=== PATIENT | male | born 1935 | race Caucasian/White ===

== ENCOUNTER → 2019-03-01 14:20 | Outpatient (ROUT) | payer MEDICARE, OTHER, SELFPAY ==
[2019-03-01 15:03] LABS: Aspartate Aminotransferase 27 IU/L (17-59); BUN Creatinine Ratio 23.3 (6-22); Blood Urea Nitrogen 21 mg/dL (9-20); Calcium 9.2 mg/dL (8.4-10.2); Carbon Dioxide 28 mmol/L (22-32); Chloride 103 mmol/L (98-107); Cholesterol 149 mg/dL (140-199); Estimated Glomerular Filt Rate > 60.0 mL/min (>60); Glucose 104 mg/dL (80-110); HDL Cholesterol 35 mg/dL (40-60); HEMOLYSIS 16 (0-50); LDL Cholesterol Calculated 47 mg/dL (<100); Sodium 141 mmol/L (137-145); Triglycerides 334 mg/dL (35-150)
[2019-03-01 15:32] LABS: Prostate Specific Antigen < 0.064 ng/mL (0.10-4.00)
== END ==
PROVIDERS: Family Provider Internal Medicine; PCP Internal Medicine; Visit Provider Internal Medicine
DX: I10 Essential (primary) hypertension (principal); E78.2 Mixed hyperlipidemia; C61 Malignant neoplasm of prostate
CPT/HCPCS: 80048; 80061; 84153; 84450

== ENCOUNTER 2019-11-05 16:58 | Emergency (ER) | payer MEDICARE, OTHER, SELFPAY ==
[2019-11-05 17:00] VITALS: PULSE 70; RESP 20; TEMP 37.3; O2SAT 97
--- NOTE | 2019-11-05 17:06 | DI.RAD.S_ITS ---
PROCEDURE: XR CHEST 1V INDICATIONS: chest pain TECHNIQUE: One view of the chest was acquired. COMPARISON: None. FINDINGS: Surgical changes and devices: None. Lungs and pleura: An incomplete inspiratory result is noted, causing a crowded appearance to the lung markings. No focal infiltrates are seen. No pneumothorax or significant pleural effusions are seen. Mediastinum: Prominence of the superior mediastinum can be seen. The cardiac contours are within normal limits. The aorta demonstrates calcification and tortuosity. Bones and chest wall: No suspicious bony lesions. Age-appropriate bony degenerative changes are seen. Overlying soft tissues appear unremarkable. IMPRESSION: There is prominence of the superior mediastinum. Statistically, this is most likely related to prominent vessels. However, please consider a dedicated chest CT with IV contrast for further evaluation. Dictated by: Gabriel Campo M.D. on 11/05/2019 at 17:06 Approved by: Gabriel Campo M.D. on 11/05/2019 at 17:07
[2019-11-05 17:08] VITALS: BP 138/71
[2019-11-05 17:30] LABS: INR 1.2 (0.9-1.3); Prothrombin Time 13.3 SECONDS (10.1-12.7)
[2019-11-05 17:33] LABS: PTT Partial Thromboplastin Tim 32 SECONDS (26.4-36.2)
[2019-11-05 17:35] LABS: Add Manual Diff / Slide Review NO; Alanine Aminotransferase 22 IU/L (<50); Albumin 4.5 g/dL (3.5-5.0); Albumin Globulin Ratio 1.6 (1.0-2.8); Alkaline Phosphatase 67 U/L (38-126); Aspartate Aminotransferase 29 IU/L (17-59); BUN Creatinine Ratio 19.1 (6-22); Basophils Absolute Auto 0 /uL (0-100); Basophils Percent Auto 0.6 % (0-2); Bilirubin Total 0.5 mg/dL (0.2-1.3); Blood Urea Nitrogen 17 mg/dL (9-20); Calcium 9.1 mg/dL (8.4-10.2); Carbon Dioxide 28 mmol/L (22-32); Chloride 102 mmol/L (98-107); Creatine Kinase 66 U/L (55-170); Eosinophils Absolute Auto 0 /uL (0-450); Eosinophils Percent Auto 0.1 % (2-4); Estimated Glomerular Filt Rate > 60.0 mL/min (>60); Globulin 2.8 g/dL (1.7-4.1); Glucose 137 mg/dL (80-110); HEMOLYSIS 27 (0-50); Hematocrit 48.5 % (41-53); Hemoglobin 16.8 g/dL (13.5-17.5); Lipase 205 U/L (23-300); Lymphocytes Absolute Auto 900 /uL (1100-4500); Lymphocytes Percent Auto 12.2 % (25-40); Mean Corpuscular HGB Conc 34.6 % (30-36); Mean Corpuscular Hemoglobin 30.5 PG (26-34); Mean Corpuscular Volume 88.2 fL (80-100); Monocytes Absolute Auto 1100 /uL (0-900); Monocytes Percent Auto 15.2 % (3-14); Neutrophils Absolute Auto 5400 /uL (1500-7000); Neutrophils Percent Auto 71.9 % (50-75); Platelet Count 227 X10^3/uL (150-400); Potassium 3.5 mmol/L (3.4-5.1); Red Cell Distribution Width 13.5 % (11.6-14.8); Sodium 137 mmol/L (137-145); Total Protein 7.3 g/dL (6.3-8.2); White Blood Cell Count 7.5 X10^3/uL (4.5-11.0)
[2019-11-05 17:44] LABS: NT-proBNP (BNP-Adult 18+) 280 pg/mL (<450)
[2019-11-05 17:46] LABS: Troponin I < 0.012 ng/mL (0.01-0.034)
[2019-11-05] MEDS: KETOROLAC 60 MG/2 ML VIAL 15 MG IV (18:21)
[2019-11-05] MEDS: SODIUM CHLORIDE 0.9% 500 ML 1000 ML IV (18:21)
[2019-11-05 18:30] VITALS: BP 154/70; PULSE 59; RESP 29; O2SAT 94
[2019-11-05 18:46] LABS: D Dimer 258 ng/mL (<230)
[2019-11-05 19:00] VITALS: BP 142/66; PULSE 59; RESP 21; O2SAT 94
--- NOTE | 2019-11-06 00:38 | ED_ITS ---
HPI - Extremity Problem <SHANAE Huertas - Last Filed: 11/06/19 01:10> General Chief complaint: Extremity Problem,Nontraumatic Stated complaint: fatigue,leg aches bilat Time Seen by Provider: 11/05/19 17:35 Source: patient Mode of arrival: Ambulatory Limitations: no limitations History of Present Illness HPI Narrative: This is a 84-year-old male, nonsmoker, who has history of prosta te cancer with seed implantations, hypertension and hyperlipidemia who presents to ED with significant other with chief complain of vague symptoms, lack of energy for 2 days. Patient denies fever, chills, nausea or vomiting or diarrhea. Patient denies history of thyroid disease. Denies recent weight changes, blood in his stool or urine, recent URI symptoms, abdominal pain, chest pain, breathing difficulty, headache, vision change, urinary symptoms, unusual rashes. Patient reports his only complaint is some aches in bilateral thighs. Patient denies recent fall or trauma. He denies recent foreign travel. Spouse noticed somewhat decreased in appetite. Related Data Home Medications Medication Instructions Recorded Confirmed amlodipine [Norvasc] 10 mg PO QDAY #0 12/08/10 07/26/19 aspirin 81 mg PO QDAY #0 12/08/10 07/26/19 furosemide 40 mg PO BID #0 12/08/10 07/26/19 losartan 100 mg PO QDAY #0 12/08/10 07/26/19 metoprolol tartrate 12.5 mg PO BID #0 12/08/10 07/26/19 simvastatin 40 mg PO QDAY #0 12/08/10 07/26/19 Respironics DreamStation CPAP #1 [id number] 07/13/18 07/26/19 Allergies Allergy/AdvReac Type Severity Reaction Status Date / Time No Known Drug Allergies Allergy Unverified 01/11/19 10:40 Review of Systems <SHANAE Huertas - Last Filed: 11/06/19 01:10> Review of Systems Narrative: General: See HPI HEENT: Denies sinus pain, ear pain, sore throat, difficulty swallowing, dizziness. Respiratory: Denies dyspnea, cough, wheezing, hemoptysis, sputum. Cardiovascular: Denies chest pain, palpitations, orthopnea, edema. Gastrointestinal: Denies nausea, vomiting, abdominal pain, diarrhea, constipation, melena. : Denies dysuria, frequency, incontinence, hematuria, urinary retention. Musculoskeletal: HPI Skin: Denies rash, skin lesions, or other. Neurologic: Denies weakness, headache, numbness, change in speech, confusion, seizures, incoordination. Psychiatric: No concerning psychosocial issues. 12-point review of systems is negative except for those stated above. 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 Head: Normal cephalic, atraumatic. No scalp or temporal tenderness, palpable mass or rash. EYES: Pupils are equal, round, and reactive to light and accommodation. Extraocular muscles are intact bilaterally. There is no subconjunctival hemorrhage, exudate and sclera non-icteric. ENT: Hearing grossly intact. Nose without bleeding, purulent discharge or deviation. Facial sinuses nontender to palpate. Mucous membrane moist, no mucosal lesion. Throat without erythema, tonsillar hypertrophy or exudate. Uvula in midline, airway patent. Neck: Trachea in midline. No JVD, non-tender without lymphadenopathy. No masses or thyroid megaly. Supple, non-tender and no meningeal signs. CARDIAC: Normal regular rate and rhythm without murmurs, gallops, or rubs. No chest wall tenderness. No peripheral edema, cyanosis or pallor. Capillary refill is less than 2 seconds. RESPIRATORY: Lungs are clear to auscultate bilaterally. No cough, wheezes, rales, or rhonchi. No stridor, respiratory distress, increase work of br eathing, or accessary muscle used. ABD: Abdomen soft, nontender and non-distended. No guarding or rebound tenderness to palpate. Bowel sounds are normal in all 4 quadrants. There is no palpable masses or organomegaly. EXT: Full painless ROM of all extremities with no loss of sensation, strength, effusion or edema. Bilateral lower extremity strength equal bilateral SKIN: Warm, dry, normal color for patient. No erythema, lesions or rash over visible areas. BACK: Nontender without deformity or crepitance. No flank tenderness. NEUROLOGICAL: Alert and oriented to place, time and person. Sensation and motor function intact bilaterally. No facial droops, dysphasia. PSYCHIATRIC: Good judgement and reason, without hallucinations, abnormal affect or abnormal behaviors during the examination. Patient is not suicidal. Initial Vital Signs Initial Vital Signs: Vital Signs Temperature 99.1 F 11/05/19 17:00 Pulse Rate 70 11/05/19 17:00 Respiratory Rate 20 11/05/19 17:00 Pulse Oximetry 97 11/05/19 17:00 <Richard Velazco MD - Last Filed: 11/10/19 21:19> Initial Vital Signs Initial Vital Signs: Vital Signs Temperature 99.1 F 11/05/19 17:00 Pulse Rate 70 11/05/19 17:00 Respiratory Rate 20 11/05/19 17:00 Pulse Oximetry 97 11/05/19 17:00 Course <SHANAE Huertas - Last Filed: 11/06/19 01:10> Orders Ordered: Discontinued Medications Sodium Chloride (Normal Saline 0.9%) 500 mls @ 1,000 mls/hr IV BOLUS ONE Stop: 11/05/19 18:48 Last Admin: 11/05/19 18:21 Dose: 1,000 mls/hr Documented by: ALF Ketorolac Tromethamine (Toradol) 15 mg IV NOW ONE Stop: 11/05/19 18:17 Last Admin: 11/05/19 18:21 Dose: 15 mg Documented by: ALF Vital Signs Vital signs: Vital Signs - 8 hr 11/05/19 17:00 11/05/19 17:08 11/05/19 18:30 Temperature 99.1 F Pulse Rate 70 59 L Respiratory Rate 20 29 H Blood Pressure [Left Arm] 138/71 154/70 H Pulse Oximetry 97 94 11/05/19 19:00 Temperature Pulse Rate 59 L Respiratory Rate 21 Blood Pressure [Left Arm] 142/66 H Pulse Oximetry 94 <Richard Velazco MD - Last Filed: 11/10/19 21:19> Orders Ordered: Discontinued Medications Sodium Chloride (Normal Saline 0.9%) 500 mls @ 1,000 mls/hr IV BOLUS ONE Stop: 11/05/19 18:48 Last Admin: 11/05/19 18:21 Dose: 1,000 mls/hr Documented by: ALF Ketorolac Tromethamine (Toradol) 15 mg IV NOW ONE Stop: 11/05/19 18:17 Last Admin: 11/05/19 18:21 Dose: 15 mg Documented by: ALF Vital Signs Vital signs: Vital Signs - 8 hr 11/05/19 17:00 11/05/19 17:08 11/05/19 18:30 Temperature 99.1 F Pulse Rate 70 59 L Respiratory Rate 20 29 H Blood Pressure [Left Arm] 138/71 154/70 H Pulse Oximetry 97 94 11/05/19 19:00 Temperature Pulse Rate 59 L Respiratory Rate 21 Blood Pressure [Left Arm] 142/66 H Pulse Oximetry 94 MDM - Extremity (Nontraumatic) <SHANAE Huertas - Last Filed: 11/06/19 01:10> Differential Diagnosis Differential diagnosis: Likely other (Pneumonia, anemia, LA, infection, DVT, muscular skeletal discomfort) Medical Records Attestation: I reviewed the patient's medical records. Lab Data Attestation: I reviewed the patient's lab results. Result diagrams: 11/05/19 17:15 11/05/19 17:15 Labs: Lab Results 11/05/19 11/05/19 11/05/19 Range/Units 17:15 17:15 17:15 WBC 7.5 (4.5-11.0) X10^3/uL RBC 5.50 (4.5-5.9) X10^6/uL Hgb 16.8 (13.5-17.5) g/dL Hct 48.5 (41-53) % MCV 88.2 (80-100) fL MCH 30.5 (26-34) PG MCHC 34.6 (30-36) % RDW 13.5 (11.6-14.8) % Plt Count 227 (150-400) X10^3/uL Neut % (Auto) 71.9 (50-75) % Lymph % (Auto) 12.2 L (25-40) % [place] % (Auto) 15.2 H (3-14) % Eos % (Auto) 0.1 L (2-4) % Baso % (Auto) 0.6 (0-2) % Neut # (Auto) 5400 (8019-8386) /uL Lymph # (Auto) 900 L (4401-0173) /uL [place] # (Auto) 1100 H (0-900) /uL Eos # (Auto) 0 (0-450) /uL Baso # (Auto) 0 (0-100) /uL PT 13.3 H (10.1-12.7) SECONDS INR 1.2 (0.9-1.3) APTT 32 (26.4-36.2) SECONDS D-Dimer (<230) ng/mL Sodium 137 (137-145) mmol/L Potassium 3.5 (3.4-5.1) mmol/L Chloride 102 (98-107) mmol/L Carbon Dioxide 28 (22-32) mmol/L BUN 17 (9-20) mg/dL Creatinine 0.89 (0.66-1.25) mg/dL Estimated GFR > 60.0 (>60) mL/min BUN/Creatinine Ratio 19.1 (6-22) Glucose 137 H (80-110) mg/dL Calcium 9.1 (8.4-10.2) mg/dL Magnesium 2.0 (1.6-2.3) mg/dL Total Bilirubin 0.5 (0.2-1.3) mg/dL AST 29 (17-59) IU/L ALT 22 (<50) IU/L Alkaline Phosphatase 67 (38-126) U/L Total Creatine Kinase 66 (55-170) U/L CK-MB (CK-2) TNP CK-MB (CK-2) Rel Index TNP Troponin I < 0.012 (0.01-0.034) ng/mL NT-Pro-B Natriuret Pep (<450) pg/mL Total Protein 7.3 (6.3-8.2) g/dL Albumin 4.5 (3.5-5.0) g/dL Globulin 2.8 (1.7-4.1) g/dL Albumin/Globulin Ratio 1.6 (1.0-2.8) Lipase 205 (23-300) U/L 11/05/19 11/05/19 Range/Units 17:15 17:15 WBC (4.5-11.0) X10^3/uL RBC (4.5-5.9) X10^6/uL Hgb (13.5-17.5) g/dL Hct (41-53) % MCV (80-100) fL MCH (26-34) PG MCHC (30-36) % RDW (11.6-14.8) % Plt Count (150-400) X10^3/uL Neut % (Auto) (50-75) % Lymph % (Auto) (25-40) % [place] % (Auto) (3-14) % Eos % (Auto) (2-4) % Baso % (Auto) (0-2) % Neut # (Auto) (7197-9827) /uL Lymph # (Auto) (3392-7597) /uL [place] # (Auto) (0-900) /uL Eos # (Auto) (0-450) /uL Baso # (Auto) (0-100) /uL PT (10.1-12.7) SECONDS INR (0.9-1.3) APTT (26.4-36.2) SECONDS D-Dimer 258 H (<230) ng/mL Sodium (137-145) mmol/L Potassium (3.4-5.1) mmol/L Chloride (98-107) mmol/L Carbon Dioxide (22-32) mmol/L BUN (9-20) mg/dL Creatinine (0.66-1.25) mg/dL Estimated GFR (>60) mL/min BUN/Creatinine Ratio (6-22) Glucose (80-110) mg/dL Calcium (8.4-10.2) mg/dL Magnesium (1.6-2.3) mg/dL Total Bilirubin (0.2-1.3) mg/dL AST (17-59) IU/L ALT (<50) IU/L Alkaline Phosphatase (38-126) U/L Total Creatine Kinase (55-170) U/L CK-MB (CK-2) CK-MB (CK-2) Rel Index Troponin I (0.01-0.034) ng/mL NT-Pro-B Natriuret Pep 280 (<450) pg/mL Total Protein (6.3-8.2) g/dL Albumin (3.5-5.0) g/dL Globulin (1.7-4.1) g/dL Albumin/Globulin Ratio (1.0-2.8) Lipase (23-300) U/L Imaging Data Chest x-ray: Radiologist's Impression: [address] [address] XRay Report Signed Patient: Kenny Lara [facility]#: [id number] : 1935cct:[id number] Age/Sex: 84 / MDate of Service: 11/05/19 Loc: ED Accession Number: [id number] Procedure: XR chest 1V Ordering Provider: Richard Velazco MD PROCEDURE: XR CHEST 1V INDICATIONS: chest pain TECHNIQUE: One view of the chest was acquired. COMPARISON: None. FINDINGS: Surgical changes and devices: None. Lungs and pleura: An incomplete inspiratory result is noted, causing a crowded appearance to the lung markings. No focal infiltrates are seen. No pneumothorax or significant pleural effusions are seen. Mediastinum: Prominence of the superior mediastinum can be seen. The cardiac contours are within normal limits. The aorta demonstrates calcification and tortuosity. Bones and chest wall: No suspicious bony lesions. Age-appropriate bony degenerative changes are seen. Overlying soft tissues appear unremarkable. IMPRESSION: There is prominence of the superior mediastinum. Statistically, this is most likely related to prominent vessels. However, please consider a dedicated chest CT with IV contrast for further evaluation. Dictated by: Gabriel Campo M.D. on 11/05/2019 at 17:06 Approved by: Gabriel Campo M.D. on 11/05/2019 at 17:07 ECG Data Attestation EKG: I personally reviewed and interpreted this ECG as follows: Prior ECG tracings: not available for review Interpretation: Sinus rhythm with frequent PVC rate at 70. Normal [place]. CO interval 200, QRS duration 86, QT/QTC 400/432. No acute ST elevation. MDM Narrative Medical decision making narrative: This is a pleasant 84-year-old gentleman who appears to be younger than his stated age presents to ED with vague chief complain of lack of energy for 2 days with bilateral anterior thigh muscular discomfort. Physical exam is not consistent with cellulitis. There was no red ness, swelling, warmth to palpate. Bilateral lower extremity strength was equal and full range of motion without discomfort. No imaging test was considered per unremarkable physical exam. Patient did not have fever for mildly elevated temperature of 99.1? in ED. slightly elevated blood pressure to normotensive in ED. patient's heart rate is from 50s to 70s and he takes Metoprolol which likely to control heart rate/PVCs and he takes this among other several hypertensive medications. Unable to locate EKG tracing in EMR. CBC was unremarkable with stable H&H of 16.8/48.5. Chemistry test was unremarkable with normal kidney function test, liver function tests, cardiac enzyme. Patient had slightly elevated serum glucose of 137. D dimer was 258 which is within normal for his age. Pro BNP was unremarkable. Chest x-ray without acute findings such as focal infiltrate, pleural effusion or pneumothorax. Was of prominence of the superior mediastinum which is likely related to prominent vessels and advise consider dedicated chest CT with IV contrast for further evaluation per Radiology report. Patient was provided 500 mL of normal saline infusion and IV Toradol 15mg and reports patient is feeling the best among last couple of days and is ready to go home. Considered UTIs but patient was not able to void and was requesting to go home. If patient's symptoms persists, should consider urine test for infection although patient does not endorsed urinary symptoms at this time and possible magnesium level if patient does not have history of frequent PVCs. Advise patient to hydrate well and to use [id number] Tylenol and or Motrin as needed for discomfort. Return precautions were discussed with patient and patient verbalized understanding and agreement with the treatment plan. <Richard Velazco MD - Last Filed: 11/10/19 21:19> Lab Data Labs: Lab Results 11/05/19 11/05/19 11/05/19 Range/Units 17:15 17:15 17:15 WBC 7.5 (4.5-11.0) X10^3/uL RBC 5.50 (4.5-5.9) X10^6/uL Hgb 16.8 (13.5-17.5) g/dL Hct 48.5 (41-53) % MCV 88.2 (80-100) fL MCH 30.5 (26-34) PG MCHC 34.6 (30-36) % RDW 13.5 (11.6-14.8) % Plt Count 227 (150-400) X10^3/uL Neut % (Auto) 71.9 (50-75) % Lymph % (Auto) 12.2 L (25-40) % [place] % (Auto) 15.2 H (3-14) % Eos % (Auto) 0.1 L (2-4) % Baso % (Auto) 0.6 (0-2) % Neut # (Auto) 5400 (3214-6461) /uL Lymph # (Auto) 900 L (9080-0755) /uL [place] # (Auto) 1100 H (0-900) /uL Eos # (Auto) 0 (0-450) /uL Baso # (Auto) 0 (0-100) /uL PT 13.3 H (10.1-12.7) SECONDS INR 1.2 (0.9-1.3) APTT 32 (26.4-36.2) SECONDS D-Dimer (<230) ng/mL Sodium 137 (137-145) mmol/L Potassium 3.5 (3.4-5.1) mmol/L Chloride 102 (98-107) mmol/L Carbon Dioxide 28 (22-32) mmol/L BUN 17 (9-20) mg/dL Creatinine 0.89 (0.66-1.25) mg/dL Estimated GFR > 60.0 (>60) mL/min BUN/Creatinine Ratio 19.1 (6-22) Glucose 137 H (80-110) mg/dL Calcium 9.1 (8.4-10.2) mg/dL Magnesium 2.0 (1.6-2.3) mg/dL Total Bilirubin 0.5 (0.2-1.3) mg/dL AST 29 (17-59) IU/L ALT 22 (<50) IU/L Alkaline Phosphatase 67 (38-126) U/L Total Creatine Kinase 66 (55-170) U/L CK-MB (CK-2) TNP CK-MB (CK-2) Rel Index TNP Troponin I < 0.012 (0.01-0.034) ng/mL NT-Pro-B Natriuret Pep (<450) pg/mL Total Protein 7.3 (6.3-8.2) g/dL Albumin 4.5 (3.5-5.0) g/dL Globulin 2.8 (1.7-4.1) g/dL Albumin/Globulin Ratio 1.6 (1.0-2.8) Lipase 205 (23-300) U/L 11/05/19 11/05/19 Range/Units 17:15 17:15 WBC (4.5-11.0) X10^3/uL RBC (4.5-5.9) X10^6/uL Hgb (13.5-17.5) g/dL Hct (41-53) % MCV (80-100) fL MCH (26-34) PG MCHC (30-36) % RDW (11.6-14.8) % Plt Count (150-400) X10^3/uL Neut % (Auto) (50-75) % Lymph % (Auto) (25-40) % [place] % (Auto) (3-14) % Eos % (Auto) (2-4) % Baso % (Auto) (0-2) % Neut # (Auto) (2268-5760) /uL Lymph # (Auto) (9974-6657) /uL [place] # (Auto) (0-900) /uL Eos # (Auto) (0-450) /uL Baso # (Auto) (0-100) /uL PT (10.1-12.7) SECONDS INR (0.9-1.3) APTT (26.4-36.2) SECONDS D-Dimer 258 H (<230) ng/mL Sodium (137-145) mmol/L Potassium (3.4-5.1) mmol/L Chloride (98-107) mmol/L Carbon Dioxide (22-32) mmol/L BUN (9-20) mg/dL Creatinine (0.66-1.25) mg/dL Estimated GFR (>60) mL/min BUN/Creatinine Ratio (6-22) Glucose (80-110) mg/dL Calcium (8.4-10.2) mg/dL Magnesium (1.6-2.3) mg/dL Total Bilirubin (0.2-1.3) mg/dL AST (17-59) IU/L ALT (<50) IU/L Alkaline Phosphatase (38-126) U/L Total Creatine Kinase (55-170) U/L CK-MB (CK-2) CK-MB (CK-2) Rel Index Troponin I (0.01-0.034) ng/mL NT-Pro-B Natriuret Pep 280 (<450) pg/mL Total Protein (6.3-8.2) g/dL Albumin (3.5-5.0) g/dL Globulin (1.7-4.1) g/dL Albumin/Globulin Ratio (1.0-2.8) Lipase (23-300) U/L Discharge Plan Departure Patient Disposition: Home Clinical Impression: Bilateral leg pain Fatigue Qualifiers: Fatigue type: unspecified Qualified Code(s): R53.83 - Other fatigue Discharge Date/Time: 11/05/19 19:27 Instructions: DI for Fatigue, DI for Leg Pain Activity Restrictions/Additional Instructions: You have been diagnosed with [bilateral thigh muscle pain and feeling fatigued. Lab tests and x-ray tests were unremarkable. Slightly elevated blood glucose of 137. Normal cardiac enzymes, negative D-dimer indicating blood clots, normal electrolytes. Acute findings such as pneumonia or pleural effusion. It shows prominence of the superior mediastinum and this is likely related to prominent vessels. I am glad your feeling much better at this time.]. What to do: *Take your medications as directed. Please take [id number] Tylenol and or Motrin as needed. Tylenol 650 mg up to 3 to 4 times a day and ibuprofen 400 mg up to 3 times a day as needed for fever or discomfort. Please take ibuprofen with food to decrease GI irritation. *Follow up with your primary care provider in 2-3 days, call for an appointment. Let them know you were seen in the ED and that we asked you to be seen in [facility]. *Return to ED if you have any new, worsening, or concerning symptoms, such as [chest pain, breathing difficulty, unable to tolerate fluids, increasing pain, fever, weakness to her extremities or any acute concerns]. Prescriptions: No Action losartan 50 MG tablet 100 mg PO QDAY Qty: 0 RF: 0 furosemide 40 MG tablet 40 mg PO BID Qty: 0 RF: 0 amlodipine [Norvasc] 5 MG tablet 10 mg PO QDAY Qty: 0 RF: 0 aspirin 81 MG tablet,delayed release (DR/EC) 81 mg PO QDAY Qty: 0 RF: 0 simvastatin 40 MG tablet 40 mg PO QDAY Qty: 0 RF: 0 metoprolol tartrate 25 MG tablet 12.5 mg PO BID Qty: 0 RF: 0 (DME) Respironics DreamStation CPAP Qty: 1 RF: 0 Referrals: Ace Dewey MD [Primary Care Provider] -
== END 2019-11-05 19:27 | disposition home or self-care (01) ==
PROVIDERS: Emergency Medicine; Emergency Provider Nurse Practitioner Family; Family Provider Internal Medicine; PCP Internal Medicine
DX: M79.652 Pain in left thigh (principal); M79.651 Pain in right thigh; R53.83 Other fatigue; R07.9 Chest pain, unspecified; R50.9 Fever, unspecified
CPT/HCPCS: 36415; 71045; 80053; 82550; 83690; 83735; 83880; 84484; 85025; 85379; 85610; 85730; 93005; 96374; 99284; J1885

== ENCOUNTER → 2019-11-28 18:59 | Outpatient (ROUT) | payer MEDICARE, OTHER, SELFPAY ==
[2019-11-28 19:58] LABS: BUN Creatinine Ratio 21.5 (6-22); Blood Urea Nitrogen 20 mg/dL (9-20); Estimated Glomerular Filt Rate > 60.0 mL/min (>60)
== END ==
PROVIDERS: Family Provider Internal Medicine; PCP Internal Medicine; Visit Provider Internal Medicine
DX: R93.89 Abnormal findings on diagnostic imaging of other specified body structures (principal)
CPT/HCPCS: 82565; 84520

== ENCOUNTER → 2019-12-01 12:02 | Outpatient (CLI) | payer MEDICARE, OTHER, SELFPAY ==
--- NOTE | 2019-12-01 | DI.CT.S_ITS ---
PROCEDURE: CT CHEST W CON INDICATIONS: Abnormal findings on diagnostic imaging of other specified TECHNIQUE: After the administration of intravenous contrast, 5 mm thick sections acquired from the pulmonary apices to the posterior costophrenic angles. 1 mm axial lung, 5 mm thick coronal and sagittal reformats and 7 mm axial MIP were acquired. For radiation dose reduction, the following was used: automated exposure control, adjustment of mA and/or kV according to patient size. COMPARISON: [facility], CR, XR CHEST 1V, 11/05/2019, 17:45. FINDINGS: Image quality: Excellent. Lungs and pleura: No acute air space opacities. No pleural effusions or pneumothorax. Central and peripheral airways are patent and normal in caliber. Mediastinum: Heart size is normal. No pericardial effusion. No mediastinal or hilar adenopathy by size criteria. Thoracic aorta and central pulmonary arteries are normal in size. Esophagus is normal in caliber. No hiatal hernia. Bones and chest wall: No suspicious bony lesions. No vertebral body compression fractures. No axillary or supraclavicular adenopathy by size criteria. Thyroid gland appears normal where well seen. Abdomen: Visualized upper abdominal solid organs appear normal. Upper abdominal bowel loops are normal in caliber. IMPRESSION: There is mild tortuosity of the brachiocephalic vasculature causing prominence of the superior mediastinum bilaterally, right greater than left. No underlying aneurysm or adenopathy is found. Dictated by: Storm Ambriz M.D. on 12/01/2019 at 13:45 Approved by: Storm Ambriz M.D. on 12/01/2019 at 13:47
== END ==
PROVIDERS: Family Provider Internal Medicine; PCP Internal Medicine; Referring Provider Internal Medicine; Visit Provider Internal Medicine
DX: R93.89 Abnormal findings on diagnostic imaging of other specified body structures (principal); I77.1 Stricture of artery
CPT/HCPCS: 71260; Q9967

== ENCOUNTER → 2020-03-04 19:42 | Outpatient (ROUT) | payer MEDICARE, OTHER, SELFPAY ==
[2020-03-04 19:48] LABS: Aspartate Aminotransferase 26 IU/L (17-59); BUN Creatinine Ratio 21.2 (6-22); Blood Urea Nitrogen 18 mg/dL (9-20); Calcium 9.1 mg/dL (8.4-10.2); Carbon Dioxide 29 mmol/L (22-32); Chloride 103 mmol/L (98-107); Cholesterol 160 mg/dL (140-199); Estimated Glomerular Filt Rate > 60.0 mL/min (>60); Glucose 105 mg/dL (80-110); HDL Cholesterol 36 mg/dL (40-60); HEMOLYSIS < 15 (0-50); LDL Cholesterol Calculated 71 mg/dL (<100); Potassium 3.9 mmol/L (3.4-5.1); Sodium 141 mmol/L (137-145); Triglycerides 263 mg/dL (35-150)
[2020-03-04 20:22] LABS: Prostate Specific Antigen < 0.064 ng/mL (0.10-4.00)
== END ==
PROVIDERS: Family Provider Internal Medicine; PCP Internal Medicine; Visit Provider Internal Medicine
DX: I10 Essential (primary) hypertension (principal); E78.2 Mixed hyperlipidemia; C61 Malignant neoplasm of prostate
CPT/HCPCS: 80048; 80061; 84153; 84450

== ENCOUNTER → 2022-04-27 08:44 | Outpatient (CLI) | payer MEDICARE, OTHER, SELFPAY ==
[2022-04-27 09:23] LABS: Hematocrit 46.5 % (41-53); Hemoglobin 15.6 g/dL (13.5-17.5); Mean Corpuscular HGB Conc 33.6 % (30-36); Mean Corpuscular Hemoglobin 29.7 PG (26-34); Mean Corpuscular Volume 88.3 fL (80-100); Platelet Count 260 X10^3/uL (150-400); Red Blood Cell Count 5.26 X10^6/uL (4.5-5.9); Red Cell Distribution Width 13.8 % (11.6-14.8); White Blood Cell Count 6.2 X10^3/uL (4.5-11.0)
[2022-04-27 17:32] LABS: TSH w/ Reflex to FT4 2.37 uIU/mL (0.47-4.68)
[2022-04-28 17:26] LABS: Alanine Aminotransferase 23 IU/L (<50); Albumin 3.9 g/dL (3.5-5.0); Albumin Globulin Ratio 1.5 (1.0-2.8); Alkaline Phosphatase 66 U/L (38-126); Aspartate Aminotransferase 20 IU/L (17-59); Bilirubin Total 0.6 mg/dL (0.2-1.3); Blood Urea Nitrogen 19 mg/dL (9-20); Calcium 8.8 mg/dL (8.4-10.2); Carbon Dioxide 25 mmol/L (22-32); Chloride 107 mmol/L (98-107); Cholesterol 140 mg/dL (140-199); Estimated Glomerular Filt Rate > 60 mL/min (>60); Globulin 2.6 g/dL (1.7-4.1); Glucose 105 mg/dL (80-110); HDL Cholesterol 32 mg/dL (40-60); HEMOLYSIS < 15 (0-50); LDL Cholesterol Calculated 67 mg/dL (<100); Potassium 4.3 mmol/L (3.4-5.1); Sodium 141 mmol/L (137-145); Total Protein 6.5 g/dL (6.3-8.2); Triglycerides 205 mg/dL (35-150)
[2022-04-28 18:05] LABS: Prostate Specific Antigen < 0.064 ng/mL (0.10-4.00)
== END ==
PROVIDERS: Family Provider Internal Medicine; PCP Internal Medicine; Referring Provider Internal Medicine; Visit Provider Internal Medicine
DX: E78.2 Mixed hyperlipidemia (principal); I10 Essential (primary) hypertension; Z85.46 Personal history of malignant neoplasm of prostate
CPT/HCPCS: 36415; 80053; 80061; 84153; 84443; 85027

== ENCOUNTER → 2023-04-29 09:15 | Outpatient (CLI) | payer MEDICARE, OTHER, SELFPAY ==
[2023-04-29 10:36] LABS: Aspartate Aminotransferase 23 IU/L (17-59); BUN Creatinine Ratio 23.7 (6-22); Blood Urea Nitrogen 22 mg/dL (9-20); Calcium 9.3 mg/dL (8.4-10.2); Carbon Dioxide 29 mmol/L (22-32); Chloride 104 mmol/L (98-107); Cholesterol 149 mg/dL (140-199); Estimated Glomerular Filt Rate > 60 mL/min (>60); Glucose 108 mg/dL (80-110); HDL Cholesterol 39 mg/dL (40-60); HEMOLYSIS < 15 (0-50); LDL Cholesterol Calculated 82 mg/dL (<100); Potassium 4.2 mmol/L (3.4-5.1); Sodium 140 mmol/L (137-145); Triglycerides 138 mg/dL (35-150)
[2023-04-29 11:09] LABS: Prostate Specific Antigen < 0.064 ng/mL (0.10-4.00)
== END ==
PROVIDERS: Family Provider Internal Medicine; PCP Internal Medicine; Referring Provider Internal Medicine; Visit Provider Internal Medicine
DX: E78.2 Mixed hyperlipidemia (principal); Z85.46 Personal history of malignant neoplasm of prostate; I10 Essential (primary) hypertension
CPT/HCPCS: 36415; 80048; 80061; 84153; 84450

== ENCOUNTER → 2023-05-18 12:55 | Outpatient (CLI) | payer MEDICARE, OTHER, SELFPAY ==
--- NOTE | 2023-05-18 12:56 | DI.US.S_ITS ---
PROCEDURE: US SOFT TISSUE HEAD AND NECK INDICATIONS: SWELLING OF LEFT JAW TECHNIQUE: Real-time scanning was performed of the neck region of interest, with image documentation. COMPARISON: None. FINDINGS: There is a multi-septated cystic lesion of the left parotid measuring 2.8 x 2.4 x 1.9 cm. It has nodularity within the lesion. There are small parotid gland lymph nodes, in relative close proximity. The lymph nodes are not suspicious by imaging characteristics. 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 Differential diagnosis includes benign and malignant etiologies. Additionally, there are small subjacent lymph nodes. Comment: Recommend CT neck with contrast, to include the parotid regions. Dictated by: Allan Mabry M.D. on 05/18/2023 at 14:17 Approved by: Allan Mabry M.D. on 05/18/2023 at 14:24
[2023-05-18 15:37] LABS: Add Manual Diff / Slide Review NO; Basophils Absolute Auto 0 /uL (0-100); Basophils Percent Auto 0.6 % (0-2); Eosinophils Absolute Auto 100 /uL (0-450); Eosinophils Percent Auto 1.7 % (2-4); Hematocrit 46.6 % (41-53); Hemoglobin 15.7 g/dL (13.5-17.5); Lymphocytes Absolute Auto 1700 /uL (1100-4500); Lymphocytes Percent Auto 19.8 % (25-40); Mean Corpuscular HGB Conc 33.7 % (30-36); Monocytes Absolute Auto 1200 /uL (0-900); Monocytes Percent Auto 13.4 % (3-14); Neutrophils Absolute Auto 5600 /uL (1500-7000); Neutrophils Percent Auto 64.5 % (50-75); Platelet Count 264 X10^3/uL (150-400); Red Blood Cell Count 5.24 X10^6/uL (4.5-5.9); Red Cell Distribution Width 13.5 % (11.6-14.8); White Blood Cell Count 8.7 X10^3/uL (4.5-11.0)
[2023-05-18 15:59] LABS: Alanine Aminotransferase 23 IU/L (<50); Albumin 4.2 g/dL (3.5-5.0); Albumin Globulin Ratio 1.6 (1.0-2.8); Alkaline Phosphatase 74 U/L (38-126); Aspartate Aminotransferase 26 IU/L (17-59); BUN Creatinine Ratio 25.5 (6-22); Bilirubin Total 0.6 mg/dL (0.2-1.3); Blood Urea Nitrogen 24 mg/dL (9-20); Calcium 9.2 mg/dL (8.4-10.2); Carbon Dioxide 27 mmol/L (22-32); Chloride 104 mmol/L (98-107); Estimated Glomerular Filt Rate > 60 mL/min (>60); Globulin 2.6 g/dL (1.7-4.1); Glucose 95 mg/dL (80-110); HEMOLYSIS < 15 (0-50); Potassium 4.3 mmol/L (3.4-5.1); Sodium 139 mmol/L (137-145); Total Protein 6.8 g/dL (6.3-8.2)
== END ==
PROVIDERS: Family Provider Internal Medicine; PCP Internal Medicine; Referring Provider Physician Assistant; Visit Provider Physician Assistant
DX: K11.9 Disease of salivary gland, unspecified (principal); R22.0 Localized swelling, mass and lump, head; R22.1 Localized swelling, mass and lump, neck
CPT/HCPCS: 36415; 76536; 80053; 85025

== ENCOUNTER → 2023-05-19 12:36 | Outpatient (CLI) | payer MEDICARE, OTHER, SELFPAY | PROVIDERS: Family Provider Internal Medicine; PCP Internal Medicine; Visit Provider Internal Medicine | DX: K11.6 Mucocele of salivary gland (principal); R22.0 Localized swelling, mass and lump, head; R22.1 Localized swelling, mass and lump, neck | CPT/HCPCS: 87070; 87075; 87205 ==

== ENCOUNTER → 2023-05-28 09:43 | Outpatient (CLI) | payer MEDICARE, OTHER, SELFPAY ==
--- NOTE | 2023-05-28 09:48 | DI.CT.S_ITS ---
PROCEDURE: CT SOFT TISSUE NECK W CON INDICATIONS: NECK MASS TECHNIQUE: After the administration of intravenous contrast, 3.0 mm axial sections acquired from the sella to the aortic arch. Additional oblique axial 3.0 mm sections acquired through the pharynx. 3 mm thick coronal and sagittal reformats were generated. For radiation dose reduction, the following was used: automated exposure control. COMPARISON: [facility], , SOFT TISSUE HEAD AND NECK, 05/18/2023, 13:43. FINDINGS: Image quality: Excellent. Lymph nodes: There is a 2.4 x 2.5 cm heterogeneously enhancing mass originating at the inferior margin of the left parotid gland. There are several adjacent subcentimeter nodular masslike densities. Asymmetrically more numerous lymph nodes are noted within the left neck the largest measuring 1 cm posteriorly in level 3 series 2 image 43. Vessels: Visualized vasculature appears patent. Neck spaces: The oropharynx, nasopharynx, and pharynx demonstrate no mucosal lesions. The vocal cords, false vocal cords, pyriform sinuses, epiglottis, vallecula, and tongue base all appear normal. Extramucosal spaces appear unremarkable. Glands: The parotid and submandibular glands appear normal. Thyroid gland is unremarkable. Miscellaneous: Visualized brain and orbits appear normal. Lung apices appear clear. Superficial soft tissues appear normal. Bones: No suspicious bony lesions. Visualized sinuses and mastoids appear unremarkable. IMPRESSION: Heterogeneously enhancing mass within the left neck at the inferior margin of the parotid gland with adjacent subcentimeter nodular masslike densities. There are asymmetrically more numerous lymph nodes within the left neck, borderline enlarged. While appearance can be secondary to infection or inflammation, appearance is highly concerning for malignancy and further evaluation with FNA/biopsy is recommended. Dictated by: Cassia Weaver M.D. on 05/28/2023 at 14:57 Approved by: Cassia Weaver M.D. on 05/28/2023 at 15:10
== END ==
LOC: CT 09:44
PROVIDERS: Family Provider Internal Medicine; PCP Internal Medicine; Referring Provider Otolaryngology; Visit Provider Otolaryngology
DX: R22.1 Localized swelling, mass and lump, neck (principal)
CPT/HCPCS: 70491; Q9967

== ENCOUNTER → 2023-07-26 14:20 | Outpatient (CLI) | payer MEDICARE, OTHER, SELFPAY ==
--- NOTE | 2023-07-26 | PATH_ITS ---
Note [facility] Accession Number: [id number] TESTS RESULT FLAG UNITS REF RANGE LAB Clinician Provided Cytology Information No. of containers..02 Other (Miscellaneous) Source: LEFT PAROTID CYSTIC MASS DIAGNOSIS: LEFT PAROTID CYSTIC MASS, FINE NEEDLE ASPIRATION. NEGATIVE FOR MALIGNANT CELLS. MACROPHAGES IN A BACKGROUND OF DEBRIS AND DEGENERATIVE CHANGES, CONSISTENT WITH CYST CONTENTS. NO CYST LINING EPITHELIAL CELLS ARE SEEN TO FURTHER CLASSIFY THIS CYSTIC LESION. CLINICAL AND RADIOLOGIC CORRELATION IS RECOMMENDED TO ENSURE THE CYSTIC MASS HAS BEEN ADEQUATELY SAMPLED. THIS INTERPRETATION INCLUDES EVALUATION OF A CELL BLOCK. Pathologist ICD10: 01 R22.1 Signed out by: Yuli Perez MD, Pathologist NPI- [id number] Performed by: Quoc Bustillos, Pet House Sitter ([facility]) Gross description: 31.5 CC, BROWN, CLOUDY RECEIVED: 30 CC IN CYTOLYT WITH BLUE CAP CONTAINER AND 1.5 CC FRESH IN 6 ML SYRINGE. VO /VDU 07/28/2023 0757 [facility] FLAG LEGEND: L-Low Normal,H-High Normal,LL-Alert Low,HH-Alert High <-Panic Low,>-Panic High,A-Abnormal,AA-Critical Abnormal Performed at: 01 =Z [facility] [address] [place] [address] [address], [place] [address] Sonny Wiggins MD, Performed at: [address] [place] [address] [address] [place] [address] [address], [place], [place] [id number] MD Sonny Wiggins MD Phone: [phone]
--- NOTE | 2023-07-26 14:23 | DI.US.S_ITS ---
PROCEDURE: US FINE NEEDLE ASPIRATION INDICATIONS: LEFT PAROTID CYSTIC MASS TECHNIQUE: The indications, alternatives, benefits, risks, and complications of the procedure were explained to the patient. Written informed consent was obtained and placed in the chart. Real-time sonography was utilized to choose the site for percutaneous parotid lesion sampling. The skin was prepped and draped in the usual sterile fashion. 1% lidocaine was infiltrated down to the site of interest. Serial hypodermic needles were then advanced into the site of interest under direct sonographic visualization, and serial needle aspirates were obtained. The needles were then withdrawn; a bandage was applied to the procedure site. COMPARISON: [facility], CT, CT SOFT TISSUE NECK W CON, 05/28/2023, 9:51. [facility], US, US SOFT TISSUE HEAD AND NECK, 05/18/2023, 13:43. FINDINGS: Sample site(s): Left parotid cystic lesion measuring 2.4 x 2.5 x 1.0 cm. There is a thin septation. Needle: 25 and 22 gauge FNA and aspiration. Medications: 1% lidocaine for local anaesthesia. Complications: None. The lesion is aspirated yielding just under 2 cc brown fluid. FNA was performed of the cyst wall. The cyst was nearly completely collapsed after aspirations. IMPRESSION: Successful ultrasound-guided fine-needle aspiration of the left parotid cystic lesion. Dictated by: Quincy Parsons M.D. on 07/26/2023 at 17:55 Approved by: Quincy Parsons M.D. on 07/26/2023 at 17:58
== END ==
PROVIDERS: Family Provider Internal Medicine; PCP Internal Medicine; Referring Provider Otolaryngology; Visit Provider Otolaryngology
DX: K11.6 Mucocele of salivary gland (principal)
CPT/HCPCS: 10005

== ENCOUNTER → 2024-05-01 11:43 | Outpatient (CLI) | payer MEDICARE, OTHER, SELFPAY ==
[2024-05-01 13:11] LABS: Aspartate Aminotransferase 27 IU/L (17-59); BUN Creatinine Ratio 18.4 (6-22); Blood Urea Nitrogen 18 mg/dL (9-20); Calcium 9.4 mg/dL (8.4-10.2); Carbon Dioxide 26 mmol/L (22-32); Chloride 107 mmol/L (98-107); Cholesterol 164 mg/dL (140-199); Estimated Glomerular Filt Rate > 60 mL/min (>60); Glucose 103 mg/dL (80-110); HDL Cholesterol 41 mg/dL (40-60); HEMOLYSIS < 15 (0-50); LDL Cholesterol Calculated 86 mg/dL (<100); Potassium 4.3 mmol/L (3.4-5.1); Sodium 141 mmol/L (137-145); Triglycerides 185 mg/dL (35-150)
[2024-05-01 13:40] LABS: Prostate Specific Antigen < 0.064 ng/mL (0.10-4.00)
== END ==
PROVIDERS: Family Provider Internal Medicine; PCP Internal Medicine; Referring Provider Internal Medicine; Visit Provider Internal Medicine
DX: I10 Essential (primary) hypertension (principal); Z85.46 Personal history of malignant neoplasm of prostate; E78.2 Mixed hyperlipidemia
CPT/HCPCS: 36415; 80048; 80061; 84153; 84450

== ENCOUNTER 2024-05-17 17:37 | Emergency (ER) | payer MEDICARE, OTHER, SELFPAY ==
[2024-05-17] VITALS (9 sets, daily range): BP systolic 147–190; BP diastolic 70–87; PULSE 65–81; RESP 18–26; TEMP 36.6; O2SAT 91–97; BMI 29.4
--- NOTE | 2024-05-17 17:49 | DI.RAD.S_ITS ---
PROCEDURE: XR CHEST 1V INDICATIONS: new a fib TECHNIQUE: One view of the chest was acquired. COMPARISON: [facility], CT, CT CHEST W CON, 12/01/2019, 12:11. [facility], CR, XR CHEST 1V, 11/05/2019, 17:45. FINDINGS: Surgical changes and devices: None. Lungs and pleura: An incomplete inspiratory result is noted, causing a crowded appearance to the lung markings. No focal infiltrates are seen. No pneumothorax or significant pleural effusions are seen. There is elevation of the right hemidiaphragm. Mediastinum: The cardiac contours are within normal limits. The aorta demonstrates calcification and tortuosity. Stable prominence of the superior mediastinum is seen, which is related to normal vascular structures by prior CT. Bones and chest wall: No suspicious bony lesions. Age-appropriate bony degenerative changes are seen, particular involving the shoulders. Overlying soft tissues appear unremarkable. IMPRESSION: Low lung volumes, without an acute abnormality seen by plain film. Dictated by: Gabriel Campo M.D. on 05/17/2024 at 17:02 Approved by: Gabriel Campo M.D. on 05/17/2024 at 17:03
--- NOTE | 2024-05-17 17:52 | EKG_ITS ---
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
[2024-05-17 18:05] LABS: Add Manual Diff / Slide Review NO; Basophils Absolute Auto 0 /uL (0-100); Basophils Percent Auto 0.5 % (0-2); Eosinophils Absolute Auto 100 /uL (0-450); Eosinophils Percent Auto 1.2 % (2-4); Hematocrit 50.4 % (41-53); Hemoglobin 16.9 g/dL (13.5-17.5); Lymphocytes Absolute Auto 2200 /uL (1100-4500); Lymphocytes Percent Auto 24.1 % (25-40); Mean Corpuscular HGB Conc 33.5 % (30-36); Mean Corpuscular Hemoglobin 29.7 PG (26-34); Mean Corpuscular Volume 88.8 fL (80-100); Monocytes Absolute Auto 1100 /uL (0-900); Monocytes Percent Auto 11.6 % (3-14); Neutrophils Absolute Auto 5700 /uL (1500-7000); Neutrophils Percent Auto 62.6 % (50-75); Platelet Count 288 X10^3/uL (150-400); Red Blood Cell Count 5.68 X10^6/uL (4.5-5.9); Red Cell Distribution Width 13.9 % (11.6-14.8); White Blood Cell Count 9.1 X10^3/uL (4.5-11.0)
--- NOTE | 2024-05-17 18:07 | ED_ITS ---
HPI - Dizziness General Chief Complaint: Dizziness Stated Complaint: difficulty keeping balance Time Seen by Provider: 05/17/24 17:46 Source: patient Mode of arrival: Ambulatory History of Present Illness HPI Narrative: 89-year-old male with history of hypertension, hyperlipidemia, venous insufficiency, sleep apnea, history of prostate cancer (remission since 2011) presents by private vehicle from home for approximately 12 hours of intermittent dizzy sensation. Patient states that when he got up he felt like the ceiling was moving. The sensation abated after awhile and he went about the rest of his morning routine. Throughout the day he intermittently experienced the same symptoms and felt like he was losing his balance. After [place] dinner he requested to come to the ER for evaluation. Family at bedside state that they did not notice any changes in the patient's coordination or balance when they saw him at home. Patient reports chronic tinnitus, unchanged from baseline. Denies numbness, weakness, other complaints at this time. patient does say that he had something similar happen to him 6-7 years ago. At that time his symptoms were attributed to ear crystals. He has been asymptomatic since. Related Data Home Medications Medication Instructions Recorded Confirmed Respironics DreamStation 2 02/18/22 05/01/24 Previous Rx's Medication Instructions Recorded amlodipine 10 mg tablet 10 mg PO DAILY #90 tabs 05/01/24 furosemide 40 mg tablet 40 mg PO DAILY #90 tabs 05/01/24 losartan 100 mg tablet 100 mg PO DAILY #90 tabs 05/01/24 metoprolol tartrate 25 mg tablet 12.5 mg (1/2 x 25 mg) PO BID #90 05/01/24 tabs potassium chloride 10 mEq 10 meq PO DAILY #90 caps 05/01/24 capsule,extended release simvastatin 40 mg tablet 40 mg PO QDAY #90 tabs 05/01/24 Allergies Allergy/AdvReac Type Severity Reaction Status Date / Time No Known Drug Allergies Allergy Verified 05/17/24 17:52 Patient History Medical History Primary osteoarthritis involving multiple joints Do not resuscitate Venous (peripheral) insufficiency Overweight Mixed hyperlipidemia Essential hypertension Actinic keratosis Mumps Measles Tinnitus (~1979) Hearing loss Glaucoma (~2020) oven heater associated with adverse incidents (~11/04/20) History of prostate cancer Chronic foot pain Hyperlipidemia Chronic renal insufficiency Snoring (~2002) Excessive daytime sleepiness (~2002) Obstructive sleep apnea of adult (~2002) Surgical History Anesthesia Prostate cancer (~2013) History of cataract removal with insertion of prosthetic lens (~2012) S/P ankle fusion (~2010) Social History marital status: details: (Dipti), lives in [place], identical twin, 1 daughter number of children: 4 household members: spouse and children lives independently: Yes caregiver/support person: No housing: house education level: college occupational status: previously employed 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, [employer] Smoking Status: Never smoker alcohol intake: current substance use type: does not use Smoking Status: Never smoker Exam Initial Vital Signs Initial Vital Signs: Vital Signs Temperature 97.9 F 05/17/24 17:39 Pulse Rate 75 05/17/24 17:39 Respiratory Rate 18 05/17/24 17:39 Blood Pressure 190/87 H 05/17/24 17:39 Pulse Oximetry 97 05/17/24 17:39 Oxygen Delivery Method Room Air 05/17/24 17:39 Const: Awake, alert, no acute distress, nontoxic appearing Cardiac: regular rate, regular rhythm RESP: unlabored, clear bilaterally, no wheezing MSK: Atraumatic, full range of motion, pulses equal Skin: Warm, Dry, intact, no rashes Neuro: AO x3, CN II-XII grossly intact, moves all extremities, normal coordination, normal gait, speech normal Course Orders Ordered: ED Orders 05/17/24 17:48 Complete Blood Count AUTO DIFF Stat Comprehensive Metabolic Panel Stat TSH w/ Reflex to FT4 Stat 05/17/24 17:49 XR chest 1V Stat EKG-12 Lead Stat 05/17/24 17:56 NT-proBNP (BNP-Adult 18+) Stat Troponin I Stat 05/17/24 18:05 CT angio head and neck Stat CT head/brain wo con Stat Vital Signs Vital signs: Vital Signs - 8 hr 05/17/24 17:39 05/17/24 17:44 05/17/24 17:48 Temperature 97.9 F Pulse Rate 75 81 Respiratory Rate 18 Blood Pressure 190/87 H 190/87 H Pulse Oximetry 97 96 Oxygen Delivery Method Room Air 05/17/24 17:48 05/17/24 18:00 05/17/24 18:01 Temperature Pulse Rate 75 75 Respiratory Rate 20 24 Blood Pressure 181/84 H Pulse Oximetry 95 96 Oxygen Delivery Method 05/17/24 18:01 05/17/24 18:33 05/17/24 19:00 Temperature Pulse Rate 78 65 66 Respiratory Rate 22 24 Blood Pressure Pulse Oximetry 95 93 93 Oxygen Delivery Method 05/17/24 19:30 05/17/24 19:36 05/17/24 19:36 Temperature Pulse Rate 68 66 Respiratory Rate 26 H 24 Blood Pressure 147/70 H Pulse Oximetry 91 93 Oxygen Delivery Method MDM - Dizziness Differential Diagnosis Differential diagnosis: Likely benign paroxysmal positional vertigo, orthostatic hypotension and other (BPPV) Lab Data 05/17/24 17:48 05/17/24 17:48 Labs: Lab Results 05/17/24 05/17/24 Range/Units 17:48 17:56 WBC 9.1 (4.5-11.0) X10^3/uL RBC 5.68 (4.5-5.9) X10^6/uL Hgb 16.9 (13.5-17.5) g/dL Hct 50.4 (41-53) % MCV 88.8 (80-100) fL MCH 29.7 (26-34) PG MCHC 33.5 (30-36) % RDW 13.9 (11.6-14.8) % Plt Count 288 (150-400) X10^3/uL Neut % (Auto) 62.6 (50-75) % Lymph % (Auto) 24.1 L (25-40) % [place] % (Auto) 11.6 (3-14) % Eos % (Auto) 1.2 L (2-4) % Baso % (Auto) 0.5 (0-2) % Neut # (Auto) 5700 (3622-1549) /uL Lymph # (Auto) 2200 (0644-6815) /uL [place] # (Auto) 1100 H (0-900) /uL Eos # (Auto) 100 (0-450) /uL Baso # (Auto) 0 (0-100) /uL Sodium 141 (137-145) mmol/L Potassium 3.8 (3.4-5.1) mmol/L Chloride 106 (98-107) mmol/L Carbon Dioxide 27 (22-32) mmol/L BUN 24 H (9-20) mg/dL Creatinine 1.16 (0.66-1.25) mg/dL Estimated GFR > 60 (>60) mL/min BUN/Creatinine Ratio 20.7 (6-22) Glucose 118 H (80-110) mg/dL Calcium 9.3 (8.4-10.2) mg/dL Total Bilirubin 0.6 (0.2-1.3) mg/dL AST 34 (17-59) IU/L ALT 28 (<50) IU/L Alkaline Phosphatase 78 (38-126) U/L Troponin I < 0.012 (0.01-0.034) ng/mL NT-Pro-B Natriuret Pep 139 (<450) pg/mL Total Protein 7.6 (6.3-8.2) g/dL Albumin 4.8 (3.5-5.0) g/dL Globulin 2.8 (1.7-4.1) g/dL Albumin/Globulin Ratio 1.7 (1.0-2.8) TSH 2.05 (0.47-4.68) uIU/mL Urine Dip Bedside Urine Glucose Negative Bedside Urine Bilirubin - Negative Bedside Urine Ketone - Negative Urine Specific [place] 1.005 Bedside Urine Occult Blood - Negative Bedside Urine pH 7 Bedside Urine Protein - Negative Bedside Urine Urobilinogen - Negative Bedside Urine Nitrite - Negative Bedside Urine Leukocytes - Negative Esterase Imaging Data Chest x-ray: Radiologist's Impression: PROCEDURE: XR CHEST 1V INDICATIONS: new a fib TECHNIQUE: One view of the chest was acquired. COMPARISON: [facility], CT, CT CHEST W CON, 12/01/2019, 12:11. [facility], CR, XR CHEST 1V, 11/05/2019, 17:45. FINDINGS: Surgical changes and devices: None. Lungs and pleura: An incomplete inspiratory result is noted, causing a crowded appearance to the lung markings. No focal infiltrates are seen. No pneumothorax or significant pleural effusions are seen. There is elevation of the right hemidiaphragm. Mediastinum: The cardiac contours are within normal limits. The aorta demonstrates calcification and tortuosity. Stable prominence of the superior mediastinum is seen, which is related to normal vascular structures by prior CT. Bones and chest wall: No suspicious bony lesions. Age-appropriate bony degenerative changes are seen, particular involving the shoulders. Overlying soft tissues appear unremarkable. IMPRESSION: Low lung volumes, without an acute abnormality seen by plain film. Dictated by: Gabriel Campo M.D. on 05/17/2024 at 17:02 Approved by: Gabriel Campo M.D. on 05/17/2024 at 17:03 CT scan - head: Radiologist's Impression: PROCEDURE: CT HEAD/BRAIN WO CON INDICATIONS: dizzy/off balance feeling x 1 day TECHNIQUE: Noncontrast 4.5 mm thick angled axial sections acquired from the foramen magnum to the vertex, with coronal and sagittal reformats. For radiation dose reduction, the following was used: automated exposure control, adjustment of mA and/or kV according to patient size. COMPARISON: [facility], CT, CT ANGIO HEAD AND NECK, 05/17/2024, 18:16. FINDINGS: Image quality: Diagnostic. CSF spaces: Basal cisterns are patent. No extra-axial fluid collections. The ventricles are symmetric in size and shape. Brain: No intracranial bleeds or masses. There is cerebral volume loss for age, with resultant ventricular and sulcal prominence. There are periventricular and deep white matter chronic small vessel ischemic changes. There is intracranial internal carotid artery atherosclerosis. Skull and face: Calvarium and visualized facial bones appear intact, without suspicious lesions. Sinuses: Visualized sinuses and mastoids are clear. IMPRESSION: No acute intracranial pathology. Dictated by: Gabriel Campo M.D. on 05/17/2024 at 17:47 Approved by: Gabriel Campo M.D. on 05/17/2024 at 17:50 CTA - brain/neck: Radiologist's Impression: PROCEDURE: CT ANGIO HEAD AND NECK INDICATIONS: dizzy/off balance feeling x 1 day TECHNIQUE: After the administration of intravenous contrast, 1 mm thick sections acquired from the aortic arch through the [place]. 3-dimensional jsojpur-meimvholh-vntxnqmrgc (MIP) and/or volume rendering reformats were acquired of the central intracranial vasculature and neck separately. For radiation dose reduction, the following was used: automated exposure control, adjustment of mA and/or kV according to patient size. COMPARISON: [facility], CT, CT HEAD/BRAIN WO CON, 05/17/2024, 18:16. [facility], CT, CT SOFT TISSUE NECK W CON, 05/28/2023, 9:51. FINDINGS: Image quality: There is artifact associated with the metallic hardware. Artifact from the metallic hardware is reduced by metal reconstruction algorithm. BRAIN: CSF spaces: Ventricles are normal in size and shape. Basal cisterns are patent. No extra-axial fluid collections. Brain: No significant abnormality of the brain can be seen. Skull and face: Calvarium and facial bones appear intact, without suspicious lesions. Orbits appear normal. Sinuses: Sinuses and mastoids are clear. HEAD CT ANGIOGRAPHY: Anterior circulation: Intracranial internal carotid arteries are normal in size and flow. The flow within the paired anterior cerebral arteries is normal and symmetric. The flow within the middle cerebral arteries is normal and symmetric. The anterior communicating artery is seen. No aneurysms are seen. Posterior circulation: Visualized portions of the vertebral arteries demonstrate normal caliber, and join to form a normal appearing basilar artery. There is a prominent left posterior communicating artery seen, with an accompanying diminutive left P1 segment. This is attributed to a type origin of the right posterior cerebral artery, which is considered to be a normal developmental variant of typically no clinical consequence. The flow within the posterior cerebral arteries is normal and symmetric. No aneurysms are seen. NECK CT ANGIOGRAPHY: Carotid system: The great vessels demonstrate a conventional anatomy as they arise from the aortic arch. Atherosclerotic calcification is noted. The origins of the common carotid arteries appear patent. The common carotid arteries demonstrate normal caliber and courses. The bifurcation regions demonstrate atherosclerotic irregularity and calcification, without a focal stenosis. The more distal internal carotid arteries demonstrate normal course and caliber. Posterior circulation: The origins of the vertebral arteries both appear widely patent. The more superior extracranial portions of both vertebral arteries also demonstrate normal courses and calibers. They join to form a normal appearing basilar artery. Soft tissues: Visualized neck soft tissues demonstrate no suspicious abnormalities. The previously seen left parotid nodule is no longer seen. Bones: No suspicious bony lesions. Visualized cervical spine appears normally aligned. At least moderate cervical spine degenerative change can be seen. IMPRESSION: No imaging explanation is found for this patient's presenting symptoms. No significant intracranial arterial abnormality is seen. No significant abnormality is seen within the arteries of the neck. Interval resolution of the previously seen left parotid mass. Please correlate with interval history. No enlarged cervical lymph nodes are seen. Additional findings: Nnxviy-yf-Gqymoi developmental anomalies. Any quantitative measurements of stenosis were performed using NASCET criteria. Dictated by: Gabriel Campo M.D. on 05/17/2024 at 17:50 Approved by: Gabriel Campo M.D. on 05/17/2024 at 17:53 [facility] Narrative Medical decision making narrative: Vague intermittent dizzy sensation today. Family at bedside state that they did not notice anything abnormal about the patient's coordination or gait at home. NIH 0 on exam, patient has intact coordination and normal gait when ambulating in the hallways. On cardiac monitoring for a brief spell it appeared as though the patient was in atrial fibrillation, however when the monitoring was analyze there were P waves present and this was not atrial fibrillation. Patient denies palpitations or hstory of a fib ever. Laboratory work shows WBC count 9.1, hemoglobin 16.9, platelet count 288, sodium 141, potassium 3.8, creatinine 1.16, normal liver enzymes, troponin undetectable, TSH 2.05. Chest x-ray negative for acute findings. Head CT negative for acute findings. Head and neck CT angio showed improvement of a previously seen parotid mass, congenital findings, no other concerning findings. Patient reassessed, resting comfortably in bed. All lab and imaging findings discussed with the patient. He says that he was had no further dizziness while in the emergency department. He was counseled that he should follow up with his primary care doctor if he continues to experience symptoms. If anything returns or worsens he should come back to the ER for repeat evaluation. Discharge Plan Departure Patient Disposition: Home Clinical Impression: Dizziness Instructions: DI for Dizziness-Nonvertigo Activity Restrictions/Additional Instructions: Your laboratory work, head CTs, chest x-ray were all normal. There does not appear to be any infection, blockage, stroke, or other abnormalities at this time. I do not know the cause of your dizziness today, but overall your workup here is reassuring. Continue all of your home medications as prescribed. If you continued to feel symptoms please follow up with your primary care doctor for any additional testing and recommendations. If you notice worsening of your symptoms, or have any other changes in your symptoms in would like to be re-evaluated in the ER please feel free to return for repeat evaluation. Prescriptions: No Action amlodipine 10 mg tablet 10 mg PO DAILY Qty: 90 3RF furosemide 40 mg tablet 40 mg PO DAILY Qty: 90 3RF losartan 100 mg tablet 100 mg PO DAILY Qty: 90 3RF metoprolol tartrate 25 mg tablet 12.5 mg PO BID Qty: 90 3RF potassium chloride 10 mEq capsule, extended release 10 meq PO DAILY Qty: 90 3RF simvastatin 40 mg tablet 40 mg PO QDAY Qty: 90 3RF (DME) Respironics DreamStation 2 See Rx Instructions .Route .MEDSUPPLY Rx Instructions: CPAP Min: 6 Max: 16 DME: PHM RAH: 01/19/18 Referrals: Ace Dewey MD [Primary Care Provider] - Stand Alone Forms: Patient Portal/API/Survey
[2024-05-17 18:15] LABS: Alanine Aminotransferase 28 IU/L (<50); Albumin 4.8 g/dL (3.5-5.0); Albumin Globulin Ratio 1.7 (1.0-2.8); Alkaline Phosphatase 78 U/L (38-126); Aspartate Aminotransferase 34 IU/L (17-59); BUN Creatinine Ratio 20.7 (6-22); Bilirubin Total 0.6 mg/dL (0.2-1.3); Blood Urea Nitrogen 24 mg/dL (9-20); Calcium 9.3 mg/dL (8.4-10.2); Carbon Dioxide 27 mmol/L (22-32); Chloride 106 mmol/L (98-107); Estimated Glomerular Filt Rate > 60 mL/min (>60); Globulin 2.8 g/dL (1.7-4.1); Glucose 118 mg/dL (80-110); HEMOLYSIS 25 (0-50); Potassium 3.8 mmol/L (3.4-5.1); Sodium 141 mmol/L (137-145); Total Protein 7.6 g/dL (6.3-8.2)
[2024-05-17 18:27] LABS: NT-proBNP (BNP-Adult 18+) 139 pg/mL (<450); Troponin I < 0.012 ng/mL (0.01-0.034)
[2024-05-17 19:00] LABS: TSH w/ Reflex to FT4 2.05 uIU/mL (0.47-4.68)
--- NOTE | 2024-05-17 19:15 | PC.NURSE ---
RN SANE note: Ambulated patient in a walk around the department. Patient kept his oxygen saturation at 94%, was able to walk around the department and hold a conversation. Told Doctor Enrrique
== END 2024-05-17 19:55 | disposition home or self-care (01) ==
PROVIDERS: Emergency Medicine; Emergency Provider Emergency Medicine; Family Provider Internal Medicine; PCP Internal Medicine
DX: R42 Dizziness and giddiness (principal); K11.8 Other diseases of salivary glands; I10 Essential (primary) hypertension
CPT/HCPCS: 36415; 70450; 70496; 70498; 71045; 80053; 81003; 83880; 84443; 84484; 85025; 93005; 99284; Q9967

== ENCOUNTER → 2025-05-02 10:33 | Outpatient (CLI) | payer MEDICARE, OTHER, SELFPAY ==
[2025-05-02 11:05] LABS: Hemoglobin A1C% w Est Avg Glu 5.8 % (4.0-6.0)
[2025-05-02 11:07] LABS: Blood Urea Nitrogen 20 mg/dL (9-20); Calcium 9.0 mg/dL (8.4-10.2); Carbon Dioxide 25 mmol/L (22-32); Chloride 108 mmol/L (98-107); Cholesterol 148 mg/dL (140-199); Estimated Glomerular Filt Rate > 60 mL/min (>60); Glucose 120 mg/dL (70-99); HDL Cholesterol 45 mg/dL (40-60); HEMOLYSIS 24 (0-50); Potassium 4.2 mmol/L (3.4-5.1); Sodium 141 mmol/L (137-145); Triglycerides 160 mg/dL (35-150)
[2025-05-02 11:40] LABS: Prostate Specific Antigen < 0.064 ng/mL (0.10-4.00)
== END ==
PROVIDERS: PCP Internal Medicine; Referring Provider Internal Medicine; Visit Provider Internal Medicine
DX: I10 Essential (primary) hypertension (principal); R73.01 Impaired fasting glucose; E78.2 Mixed hyperlipidemia; Z85.46 Personal history of malignant neoplasm of prostate
CPT/HCPCS: 36415; 80048; 80061; 83036; 84153; 84450